=== PATIENT | male | born 1970 | race Caucasian/White ===

== ENCOUNTER 2017-09-18 01:55 | Inpatient (IN) ==
[2017-09-18] MEDS ORDERED: ONDANSETRON 4 MG/2 ML VIAL IV STA (02:18)
[2017-09-18] MEDS ORDERED: SODIUM CHLORIDE 0.9% 1,000 ML IV STA (02:18)
[2017-09-18] MEDS ORDERED: ONDANSETRON 4 MG/2 ML VIAL ONE (02:18)
[2017-09-18] MEDS ORDERED: MORPHINE 4 MG/1 ML VIAL IV STA ×2 (02:18→03:08)
[2017-09-18] MEDS ORDERED: MORPHINE 4 MG/1 ML VIAL ONE ×2 (02:24→03:10)
[2017-09-18 02:36] LABS: Basophils % 0.1 % (0.0-0.8); Eosinophils % 0.1 % (0.00-10.9); Hematocrit 41.4 VOL% (42.0-52.0); Hemoglobin 14.9 GM/DL (14.0-18.0); Immature Granulocytes % 0.4 %; Immature Granulocytes Absolute 0.04 #; Lymphocytes % 9.3 % (21.2-54.2); Mean Corpuscular Hemoglobin 31 PG (27-34); Mean Corpuscular Volume 84.7 FL (87-102); Mean Platelet Volume 9.7 FL (9.6-12.0); Monocytes # 1.1 10*3/uL (0.11-0.8); Monocytes % 10.2 % (1.7-12.7); Neutrophils # 8.6 10*3/uL (1.4-7.4); Neutrophils % 79.9 % (38.7-73.9); Platelet Count 359 T/CUMM (130-400); Red Blood Count 4.89 MC/CUMM (3.8-5.5); Red Cell Distribution Width 11.9 % (9.3-17.3); White Blood Count 10.7 T/CUMM (4-12)
[2017-09-18 02:55] LABS: Alanine Aminotransferase 47 U/L (16-61); Albumin 4.4 G/DL (3.4-5.0); Alkaline Phosphatase 93 U/L (45-117); Aspartate Amino Transferase 19 U/L (0-37); Bilirubin,Total < 0.39 MG/DL (0.2-1.0); Blood Urea Nitrogen 20 MG/DL (7-18); Calcium 9.3 MG/DL (8.5-10.1); Glucose 125 MG/DL (74-106); Osmolality,Calculated 280.5 MOS/KG (273-304); Potassium 4.1 MMOL/L (3.5-5.1); Sodium 139 MMOL/L (136-145); Total Protein 7.6 G/DL (6.4-8.3); Troponin I Only < 0.015 NG/ML (0.00-0.045)
[2017-09-18] MEDS ORDERED: HYDROmorphone 2 MG/1 ML VIAL IV STA (05:07)
[2017-09-18] MEDS ORDERED: HYDROmorphone 2 MG/1 ML VIAL ONE (05:21)
[2017-09-18] MEDS ORDERED: oxyCODONE/ACETAMINOPHEN 5-325 MG TABLET PO PRN (05:39)
[2017-09-18] MEDS ORDERED: SIMETHICONE CHEW 80 MG TABLET PO PRN (05:39)
[2017-09-18] MEDS ORDERED: CIPROFLOXACIN 400 MG/200 ML PREMIX IV ONE (05:45)
[2017-09-18] MEDS ORDERED: metroNIDAZOLE 500 MG/100 ML PREMIX IV ONE (05:45)
[2017-09-18] MEDS: metroNIDAZOLE INJ 500 MG in PREMIX 1 EACH IV SCH ×3 (05:55→22:00)
[2017-09-18] MEDS: CIPROFLOXACIN INJ 400 MG in PREMIX 1 EACH IV SCH ×2 (06:00→17:22)
[2017-09-18] MEDS: SODIUM CHLORIDE 0.9% 1,000 ML IV SCH ×3 (06:45→22:00)
[2017-09-18] MEDS: ONDANSETRON 4 MG/2 ML VIAL IV PRN (08:10)
[2017-09-18] MEDS: HYDROmorphone 2 MG/1 ML VIAL SUBCUT PRN ×3 (08:10→14:20)
[2017-09-18] MEDS: CITALOPRAM 20 MG TABLET PO SCH (08:58)
[2017-09-18] MEDS: TAMSULOSIN 0.4 MG CAPSULE PO SCH (08:58)
[2017-09-18] MEDS: PANTOPRAZOLE 40 MG TABLET PO SCH (08:58)
[2017-09-18] MEDS ORDERED: HYDROmorphone 2 MG/1 ML VIAL IV ONE (14:47)
[2017-09-18] MEDS: HYDROmorphone 2 MG/1 ML VIAL IV PRN ×3 (17:23→23:39)
[2017-09-19] MEDS: HYDROmorphone 2 MG/1 ML VIAL IV PRN ×3 (02:45→08:55)
[2017-09-19] MEDS: metroNIDAZOLE INJ 500 MG in PREMIX 1 EACH IV SCH ×3 (05:15→21:51)
[2017-09-19 06:05] LABS: Basophils % 0.4 % (0.0-0.8); Eosinophils # 0.2 10*3/uL (0.0-0.87); Eosinophils % 1.6 % (0.00-10.9); Hematocrit 34.6 VOL% (42.0-52.0); Hemoglobin 11.3 GM/DL (14.0-18.0); Immature Granulocytes % 0.5 %; Immature Granulocytes Absolute 0.05 #; Lymphocytes # 1.6 10*3/uL (1.4-4.0); Lymphocytes % 14.7 % (21.2-54.2); Mean Corpuscular HGB Conc 32.7 GM/DL (32-36); Mean Corpuscular Hemoglobin 30 PG (27-34); Mean Platelet Volume 9.9 FL (9.6-12.0); Monocytes # 1.3 10*3/uL (0.11-0.8); Monocytes % 11.8 % (1.7-12.7); Neutrophils # 7.6 10*3/uL (1.4-7.4); Platelet Count 249 T/CUMM (130-400); Red Blood Count 3.76 MC/CUMM (3.8-5.5); Red Cell Distribution Width 12.2 % (9.3-17.3); White Blood Count 10.7 T/CUMM (4-12)
[2017-09-19 06:26] LABS: Bilirubin,Total 0.6 MG/DL (0.2-1.0); Osmolality,Calculated 280.3 MOS/KG (273-304); Potassium 4.2 MMOL/L (3.5-5.1); Total Protein 5.5 G/DL (6.4-8.3)
[2017-09-19] MEDS: SODIUM CHLORIDE 0.9% 1,000 ML IV SCH ×4 (06:30→20:49)
[2017-09-19] MEDS: CIPROFLOXACIN INJ 400 MG in PREMIX 1 EACH IV SCH (06:30)
[2017-09-19] MEDS ORDERED: diphenhydrAMINE 50 MG/1 ML VIAL IV PRN (07:11)
[2017-09-19] MEDS ORDERED: diphenhydrAMINE CAP 25 MG CAPSULE PO PRN (07:11)
[2017-09-19] MEDS: MEROPENEM 1,000 MG in SYRINGE 1 EACH IV SCH ×2 (09:07→21:09)
[2017-09-19] MEDS: CITALOPRAM 20 MG TABLET PO SCH (09:07)
[2017-09-19] MEDS: TAMSULOSIN 0.4 MG CAPSULE PO SCH (09:07)
[2017-09-19] MEDS: PANTOPRAZOLE 40 MG TABLET PO SCH (09:08)
[2017-09-19] MEDS: MEPERIDINE 50 MG/1 ML VIAL IV PRN ×4 (11:54→21:07)
[2017-09-20] MEDS: MEPERIDINE 50 MG/1 ML VIAL IV PRN ×8 (00:25→22:54)
[2017-09-20] MEDS: SODIUM CHLORIDE 0.9% 1,000 ML IV SCH ×4 (02:59→20:59)
[2017-09-20] MEDS: metroNIDAZOLE INJ 500 MG in PREMIX 1 EACH IV SCH ×3 (06:04→21:01)
[2017-09-20 06:07] LABS: Basophils % 0.2 % (0.0-0.8); Eosinophils # 0.1 10*3/uL (0.0-0.87); Eosinophils % 1.6 % (0.00-10.9); Hematocrit 33.4 VOL% (42.0-52.0); Hemoglobin 10.8 GM/DL (14.0-18.0); Immature Granulocytes % 0.6 %; Immature Granulocytes Absolute 0.05 #; Lymphocytes # 1.7 10*3/uL (1.4-4.0); Lymphocytes % 19.3 % (21.2-54.2); Mean Corpuscular HGB Conc 32.3 GM/DL (32-36); Mean Corpuscular Hemoglobin 30 PG (27-34); Monocytes # 0.7 10*3/uL (0.11-0.8); Monocytes % 8.3 % (1.7-12.7); Neutrophils # 6.3 10*3/uL (1.4-7.4); Platelet Count 258 T/CUMM (130-400); Red Blood Count 3.59 MC/CUMM (3.8-5.5); Red Cell Distribution Width 12.2 % (9.3-17.3); White Blood Count 8.9 T/CUMM (4-12)
[2017-09-20 06:43] LABS: Albumin 2.7 G/DL (3.4-5.0); Bilirubin,Total 0.4 MG/DL (0.2-1.0); Calcium 7.9 MG/DL (8.5-10.1); Osmolality,Calculated 280.1 MOS/KG (273-304); Potassium 4.2 MMOL/L (3.5-5.1); Total Protein 5.3 G/DL (6.4-8.3)
[2017-09-20] MEDS: PANTOPRAZOLE 40 MG TABLET PO SCH (10:19)
[2017-09-20] MEDS: MEROPENEM 1,000 MG in SYRINGE 1 EACH IV SCH ×2 (10:19→20:59)
[2017-09-20] MEDS: CITALOPRAM 20 MG TABLET PO SCH (10:19)
[2017-09-20] MEDS: TAMSULOSIN 0.4 MG CAPSULE PO SCH (10:19)
[2017-09-21] MEDS: MEPERIDINE 50 MG/1 ML VIAL IV PRN ×8 (01:53→23:23)
[2017-09-21] MEDS: SODIUM CHLORIDE 0.9% 1,000 ML IV SCH ×4 (03:01→17:22)
[2017-09-21] MEDS: metroNIDAZOLE INJ 500 MG in PREMIX 1 EACH IV SCH ×3 (04:30→20:11)
[2017-09-21 07:10] LABS: Basophils % 0.2 % (0.0-0.8); Eosinophils # 0.2 10*3/uL (0.0-0.87); Eosinophils % 1.6 % (0.00-10.9); Hematocrit 34.2 VOL% (42.0-52.0); Hemoglobin 11.4 GM/DL (14.0-18.0); Immature Granulocytes % 0.5 %; Immature Granulocytes Absolute 0.05 #; Lymphocytes # 1.2 10*3/uL (1.4-4.0); Lymphocytes % 12.1 % (21.2-54.2); Mean Corpuscular HGB Conc 33.3 GM/DL (32-36); Mean Corpuscular Hemoglobin 30 PG (27-34); Mean Corpuscular Volume 90.7 FL (87-102); Mean Platelet Volume 9.8 FL (9.6-12.0); Monocytes # 0.7 10*3/uL (0.11-0.8); Monocytes % 7.2 % (1.7-12.7); Neutrophils % 78.4 % (38.7-73.9); Platelet Count 275 T/CUMM (130-400); Red Blood Count 3.77 MC/CUMM (3.8-5.5); Red Cell Distribution Width 12.1 % (9.3-17.3); White Blood Count 10.2 T/CUMM (4-12)
[2017-09-21 07:29] LABS: Calcium 7.9 MG/DL (8.5-10.1); Osmolality,Calculated 276.3 MOS/KG (273-304); Potassium 3.6 MMOL/L (3.5-5.1)
[2017-09-21] MEDS: CITALOPRAM 20 MG TABLET PO SCH (08:10)
[2017-09-21] MEDS: TAMSULOSIN 0.4 MG CAPSULE PO SCH (08:10)
[2017-09-21] MEDS: PANTOPRAZOLE 40 MG TABLET PO SCH (08:10)
[2017-09-21] MEDS: MEROPENEM 1,000 MG in SYRINGE 1 EACH IV SCH (08:15)
[2017-09-21] MEDS: ONDANSETRON 4 MG/2 ML VIAL IV PRN ×2 (14:37→20:10)
[2017-09-21] MEDS: ERTAPENEM 1,000 MG in SODIUM CHLORIDE 0.9% 100 ML IV SCH (17:18)
[2017-09-22] MEDS: MEPERIDINE 50 MG/1 ML VIAL IV PRN (02:25)
[2017-09-22] MEDS: ONDANSETRON 4 MG/2 ML VIAL IV PRN ×3 (02:40→12:02)
[2017-09-22] MEDS: metroNIDAZOLE INJ 500 MG in PREMIX 1 EACH IV SCH ×3 (04:28→17:00)
[2017-09-22] MEDS: SODIUM CHLORIDE 0.9% 1,000 ML IV SCH (04:28)
[2017-09-22 07:54] LABS: Basophils % 0.3 % (0.0-0.8); Eosinophils # 0.2 10*3/uL (0.0-0.87); Eosinophils % 2.5 % (0.00-10.9); Hematocrit 35.8 VOL% (42.0-52.0); Immature Granulocytes % 0.4 %; Immature Granulocytes Absolute 0.03 #; Lymphocytes # 0.8 10*3/uL (1.4-4.0); Mean Corpuscular HGB Conc 33.5 GM/DL (32-36); Mean Corpuscular Hemoglobin 30 PG (27-34); Mean Corpuscular Volume 89.3 FL (87-102); Monocytes # 0.6 10*3/uL (0.11-0.8); Neutrophils # 5.9 10*3/uL (1.4-7.4); Neutrophils % 78.8 % (38.7-73.9); Platelet Count 308 T/CUMM (130-400); Red Blood Count 4.01 MC/CUMM (3.8-5.5); Red Cell Distribution Width 11.9 % (9.3-17.3); White Blood Count 7.5 T/CUMM (4-12)
[2017-09-22] MEDS: TAMSULOSIN 0.4 MG CAPSULE PO SCH (08:00)
[2017-09-22] MEDS: CITALOPRAM 20 MG TABLET PO SCH (08:00)
[2017-09-22] MEDS: PANTOPRAZOLE 40 MG TABLET PO SCH (08:00)
[2017-09-22 08:16] LABS: Calcium 8.1 MG/DL (8.5-10.1); Osmolality,Calculated 278.1 MOS/KG (273-304); Potassium 3.6 MMOL/L (3.5-5.1)
[2017-09-22] MEDS: KETOROLAC 30 MG/1 ML VIAL IV SCH ×3 (09:07→20:20)
[2017-09-22] MEDS ORDERED: PROMETHAZINE 25 MG/1 ML VIAL IM PRN (14:34)
[2017-09-22] MEDS: HYDROmorphone 2 MG/1 ML VIAL IV PRN ×3 (14:58→21:38)
[2017-09-22] MEDS ORDERED: CLORAZEPATE 3.75 MG TABLET PO PRN (15:43)
[2017-09-22] MEDS: ERTAPENEM 1,000 MG in SODIUM CHLORIDE 0.9% 100 ML IV SCH (20:16)
[2017-09-23] MEDS: metroNIDAZOLE INJ 500 MG in PREMIX 1 EACH IV SCH ×3 (01:42→17:34)
[2017-09-23] MEDS: HYDROmorphone 2 MG/1 ML VIAL IV PRN ×4 (01:42→15:43)
[2017-09-23] MEDS: KETOROLAC 30 MG/1 ML VIAL IV SCH ×4 (03:24→20:19)
[2017-09-23 05:40] LABS: Basophils % 0.6 % (0.0-0.8); Eosinophils # 0.2 10*3/uL (0.0-0.87); Eosinophils % 2.4 % (0.00-10.9); Hematocrit 35.6 VOL% (42.0-52.0); Hemoglobin 11.9 GM/DL (14.0-18.0); Immature Granulocytes % 0.4 %; Immature Granulocytes Absolute 0.03 #; Lymphocytes # 1.1 10*3/uL (1.4-4.0); Lymphocytes % 16.4 % (21.2-54.2); Mean Corpuscular HGB Conc 33.4 GM/DL (32-36); Mean Corpuscular Hemoglobin 30 PG (27-34); Mean Corpuscular Volume 90.6 FL (87-102); Monocytes # 0.8 10*3/uL (0.11-0.8); Monocytes % 10.9 % (1.7-12.7); Neutrophils # 4.8 10*3/uL (1.4-7.4); Neutrophils % 69.3 % (38.7-73.9); Platelet Count 292 T/CUMM (130-400); Red Blood Count 3.93 MC/CUMM (3.8-5.5); Red Cell Distribution Width 11.9 % (9.3-17.3)
[2017-09-23 06:09] LABS: Calcium 8.4 MG/DL (8.5-10.1); Osmolality,Calculated 284.7 MOS/KG (273-304); Potassium 3.7 MMOL/L (3.5-5.1)
[2017-09-23] MEDS: TAMSULOSIN 0.4 MG CAPSULE PO SCH (08:15)
[2017-09-23] MEDS: CITALOPRAM 20 MG TABLET PO SCH (08:15)
[2017-09-23] MEDS: PANTOPRAZOLE 40 MG TABLET PO SCH (08:15)
[2017-09-23] MEDS: ERTAPENEM 1,000 MG in SODIUM CHLORIDE 0.9% 100 ML IV SCH (20:22)
[2017-09-24] MEDS: metroNIDAZOLE INJ 500 MG in PREMIX 1 EACH IV SCH (00:56)
[2017-09-24] MEDS: KETOROLAC 30 MG/1 ML VIAL IV SCH ×2 (02:00→09:44)
[2017-09-24 05:47] LABS: Basophils % 0.3 % (0.0-0.8); Eosinophils # 0.2 10*3/uL (0.0-0.87); Eosinophils % 4.1 % (0.00-10.9); Hematocrit 36.3 VOL% (42.0-52.0); Hemoglobin 12.3 GM/DL (14.0-18.0); Immature Granulocytes % 0.5 %; Immature Granulocytes Absolute 0.03 #; Lymphocytes # 1.1 10*3/uL (1.4-4.0); Lymphocytes % 18.9 % (21.2-54.2); Mean Corpuscular HGB Conc 33.9 GM/DL (32-36); Mean Corpuscular Hemoglobin 30 PG (27-34); Mean Corpuscular Volume 87.3 FL (87-102); Mean Platelet Volume 9.9 FL (9.6-12.0); Monocytes # 0.7 10*3/uL (0.11-0.8); Monocytes % 11.9 % (1.7-12.7); Neutrophils # 3.8 10*3/uL (1.4-7.4); Neutrophils % 64.3 % (38.7-73.9); Platelet Count 315 T/CUMM (130-400); Red Blood Count 4.16 MC/CUMM (3.8-5.5); White Blood Count 5.9 T/CUMM (4-12)
[2017-09-24 06:23] LABS: Calcium 8.2 MG/DL (8.5-10.1); Potassium 3.8 MMOL/L (3.5-5.1)
[2017-09-24] MEDS ORDERED: AMOXICILLIN/CLAV 875 MG TABLET PO SCH (09:00)
[2017-09-24 09:12] VITALS: BP 138/85
[2017-09-24] MEDS: CITALOPRAM 20 MG TABLET PO SCH (09:43)
[2017-09-24] MEDS: TAMSULOSIN 0.4 MG CAPSULE PO SCH (09:44)
[2017-09-24] MEDS: PANTOPRAZOLE 40 MG TABLET PO SCH (09:44)
== END 2017-09-24 11:02 | disposition home or self-care (01) | DRG 395 ==
LOC: EDUNIT# → N.EDINP 01:55 → N.ED 01:55 → SUATTDRO 05:36 → N.2E 06:08 → SUATTDRO 09-20 07:57
PROVIDERS: ADMIT Internal Medicine; ATTEND Family Medicine

== ENCOUNTER 2018-09-23 10:05 | Inpatient (IN) ==
[2018-09-23] MEDS ORDERED: SODIUM CHLORIDE 0.9% 1,000 ML IV STA (10:16)
[2018-09-23] MEDS ORDERED: PANTOPRAZOLE 40 MG VIAL IV STA (10:16)
[2018-09-23] MEDS ORDERED: ONDANSETRON 4 MG/2 ML VIAL IV STA (10:16)
[2018-09-23] MEDS ORDERED: DICYCLOMINE 20 MG/2 ML AMP IM ONE (10:25)
[2018-09-23 10:46] LABS: Basophils % 0.4 % (0.0-0.8); Eosinophils # 0.1 10*3/uL (0.0-0.87); Eosinophils % 1.7 % (0.00-10.9); Hematocrit 46.8 VOL% (42.0-52.0); Hemoglobin 15.4 GM/DL (14.0-18.0); Immature Granulocytes % 0.4 %; Immature Granulocytes Absolute 0.02 #; Lymphocytes # 1.4 10*3/uL (1.4-4.0); Lymphocytes % 27.8 % (21.2-54.2); Mean Corpuscular HGB Conc 32.9 GM/DL (32-36); Mean Corpuscular Volume 87.6 FL (87-102); Mean Platelet Volume 9.8 FL (9.6-12.0); Monocytes % 9.3 % (1.7-12.7); Neutrophils % 60.4 % (38.7-73.9); Platelet Count 246 T/CUMM (130-400); Red Blood Count 5.34 MC/CUMM (3.8-5.5); Red Cell Distribution Width 13.6 % (9.3-17.3); White Blood Count 5.2 T/CUMM (4-12)
[2018-09-23 10:54] LABS: INR 0.9; PT Patient Result 10.2 SECS; Partial Thromboplastin Time 28.1 SECS (0-40)
[2018-09-23 11:12] LABS: Alanine Aminotransferase 40 U/L (16-61); Albumin 3.9 G/DL (3.4-5.0); Alkaline Phosphatase 94 U/L (45-117); Aspartate Amino Transferase 17 U/L (0-37); Blood Urea Nitrogen 18 MG/DL (7-18); Calcium 9.1 MG/DL (8.5-10.1); Glucose 88 MG/DL (74-106); Osmolality,Calculated 279.4 MOS/KG (273-304); Total Protein 7.5 G/DL (6.4-8.3); Troponin I < 0.015 NG/ML (0.00-0.045)
[2018-09-23] MEDS ORDERED: PROMETHAZINE 25 MG/1 ML VIAL IM PRN (11:42)
[2018-09-23] MEDS ORDERED: ACETAMINOPHEN 325 MG TABLET PO PRN (11:42)
[2018-09-23] MEDS ORDERED: MORPHINE 4 MG/1 ML VIAL IV PRN (11:42)
[2018-09-23] MEDS ORDERED: ONDANSETRON 4 MG/2 ML VIAL IV PRN (11:42)
[2018-09-23] MEDS ORDERED: PANTOPRAZOLE 40 MG TABLET PO SCH (12:00)
[2018-09-23] MEDS ORDERED: CITALOPRAM 20 MG TABLET PO SCH (12:00)
[2018-09-23] MEDS ORDERED: HYOSCYAMINE 0.125 MG TABLET PO PRN (14:33)
[2018-09-23] MEDS ORDERED: AZITHROMYCIN 250 MG TABLET PO ONE (14:48)
[2018-09-23] MEDS ORDERED: CIPROFLOXACIN INJ 400 MG in PREMIX 1 EACH IV SCH (15:00)
[2018-09-23] MEDS: PANTOPRAZOLE 40 MG VIAL IV SCH ×2 (15:01→21:18)
[2018-09-23] MEDS: metroNIDAZOLE INJ 500 MG in PREMIX 1 EACH IV SCH ×2 (15:01→21:18)
[2018-09-23] MEDS: DEXTROSE 5% NACL 0.45% 1,000 ML IV SCH ×2 (15:01→23:55)
[2018-09-23 18:46] LABS: Apearance,Urine CLEAR (Clear); Bilirubin,Urine Negative (Negative); Blood, Urine Negative (Negative); Glucose,Urine (UA) Negative (Negative); Ketones,Urine Negative (Negative); Mucus,Urine Occasional /LPF (Occasional); Nitrite,Urine Negative (Negative); Protein,Urine Negative; RBC,Urine <1 /HPF (0-4); Urine Color Straw (Yellow); Urine Specific Gravity 1.011 (1.001-1.035); Urine Urobilinogen < 2.0 EU/DL (0.2-1.0); WBC,Urine <1 /HPF (0-6)
[2018-09-24] MEDS: DEXTROSE 5% NACL 0.45% 1,000 ML IV SCH ×2 (04:55→04:56)
[2018-09-24 05:45] LABS: Basophils % 0.4 % (0.0-0.8); Eosinophils # 0.1 10*3/uL (0.0-0.87); Eosinophils % 1.9 % (0.00-10.9); Hematocrit 42.5 VOL% (42.0-52.0); Hemoglobin 13.6 GM/DL (14.0-18.0); Immature Granulocytes % 0.7 %; Immature Granulocytes Absolute 0.04 #; Lymphocytes # 1.4 10*3/uL (1.4-4.0); Mean Corpuscular Volume 89.7 FL (87-102); Mean Platelet Volume 9.9 FL (9.6-12.0); Monocytes % 9.7 % (1.7-12.7); Neutrophils % 62.3 % (38.7-73.9); Platelet Count 224 T/CUMM (130-400); Red Blood Count 4.74 MC/CUMM (3.8-5.5); Red Cell Distribution Width 13.6 % (9.3-17.3); White Blood Count 5.7 T/CUMM (4-12)
[2018-09-24] MEDS: metroNIDAZOLE INJ 500 MG in PREMIX 1 EACH IV SCH (06:12)
[2018-09-24 06:23] LABS: Albumin 3.3 G/DL (3.4-5.0); Bilirubin,Total 0.5 MG/DL (0.2-1.0); Calcium 8.2 MG/DL (8.5-10.1); Osmolality,Calculated 281.3 MOS/KG (273-304); Total Protein 6.3 G/DL (6.4-8.3)
[2018-09-24 08:04] VITALS: BP 114/72
[2018-09-24] MEDS: PANTOPRAZOLE 40 MG VIAL IV SCH (08:23)
[2018-09-24] MEDS ORDERED: CITALOPRAM 20 MG TABLET PO SCH (09:00)
[2018-09-24] MEDS ORDERED: AZITHROMYCIN 250 MG TABLET PO SCH (09:00)
[2018-09-27 16:55] LABS: Astrovirus Negative (Negative); Cryptosporidium species Negative (Negative); Cyclospora cayetanensis Negative (Negative); Entamoeba histolytica Negative (Negative); Enteropathogenic E.coli (EPEC) Negative (Negative); Enterotoxigenic E. coli (ETEC) Negative (Negative); Norovirus GI/GII Negative (Negative); Plesiomonas shigelloides Negative (Negative); Salmonella species Negative (Negative); Sapovirus Negative (Negative); Shiga toxin producing E. coli Negative (Negative); Shigella/Enteroinvasive E.coli Negative (Negative); Specimen Source STOOL; Vibrio cholerae Negative (Negative); Yersinia enterocolitica Negative (Negative)
== END 2018-09-24 10:15 | disposition home or self-care (01) | DRG 392 ==
LOC: N.ED 10:05 → N.EDINP 11:42 → SUATTDRO 11:42 → N.5E 12:54
PROVIDERS: ADMIT Internal Medicine; ATTEND Internal Medicine